=== PATIENT | male | born 1965 | race Caucasian/White ===

== ENCOUNTER → 2016-09-13 | Outpatient (CLI) | payer OTHER ==
[~2016-09-13] MED LIST: ALDACTONE 25MG25 MG PO; ASPIR-LOW81 MG PO; CARDIZEM CD120 MG PO; DIAMOX 250 MG250 MG PO; FERROUS SULFAT325 M2 PO; FOLIC ACID 1 MG1 MG PO; K-DUR TAB 20 M20 MEQ PO; LANTUS100 UNIT/1 SQ; LASIX20 MG PO; LEVEMIR100 UNIT/1 SQ; LISINOPRIL10 MG PO; LOPRESSOR50 MG PO; LORTAB 5-325 M1 EACH PO; METOPROLOL TART50 MG PO; NEURONTIN 300300 MG PO; NORVASC 5 MG TAB5 MG PO; NOVOLOG 10100 UNITS/ SQ; OMEPRAZOLE40 MG PO; OTEZLA30 MG PO; SIMVASTATIN20 MG PO; TREXALL10 MG PO; VICTOZA 3-0.6 MG/0.1 SQ; VITAMIN B-121000 MCG PO; ZAROXOLYN/DIULO5 MG PO; ZESTRIL/PRINIVI10 MG PO
[2016-09-13 10:54] LABS: HEMOGLOBIN 9.8 gm/dl (14.0-17.5); RED BLOOD COUNT 3.45 M/UL (4.20-5.50); WHITE BLOOD COUNT 6.7 K/UL (4.5-11.0)
== END ==
LOC: LAB 10:00
PROVIDERS: Podiatrist Foot & Ankle Surgery
DX: E11.621 Type 2 diabetes mellitus with foot ulcer (principal); L97.509 Non-pressure chronic ulcer of other part of unspecified foot with unspecified severity
CPT/HCPCS: 36415; 85027; 86140

== ENCOUNTER → 2016-09-19 | Outpatient (CLI) | payer OTHER, SELFPAY | LOC: KOH-I 15:13 | DX: R51 Headache (principal); R55 Syncope and collapse; R56.9 Unspecified convulsions | CPT/HCPCS: 73718 ==

== ENCOUNTER 2016-10-10 14:52 | Inpatient (IN) | payer OTHER, SELFPAY ==
[~2016-10-10] VITALS: Ht 180.3 cm; Wt 130.2 kg
[~2016-10-10 14:52] MED LIST changes: -CARDIZEM CD120 MG PO; -DIAMOX 250 MG250 MG PO; -LISINOPRIL10 MG PO; -METOPROLOL TART50 MG PO; -TREXALL10 MG PO; -ZAROXOLYN/DIULO5 MG PO
[2016-10-10] MEDS ORDERED: ZAROXOLYN/DIULO5 MG PO (16:22)
[2016-10-10] MEDS ORDERED: DIAMOX 250 MG250 MG PO (16:22)
[2016-10-10 18:29] LABS: HEMOGLOBIN 8.9 gm/dl (14.0-17.5); RED BLOOD COUNT 3.18 M/UL (4.20-5.50); WHITE BLOOD COUNT 6.6 K/UL (4.5-11.0)
[2016-10-11 06:32] LABS: HEMOGLOBIN 7.7 gm/dl (14.0-17.5); WHITE BLOOD COUNT 5.9 K/UL (4.5-11.0)
[2016-10-11 06:37] LABS: RED BLOOD COUNT 2.8 M/UL (4.20-5.50)
--- NOTE | 2016-10-11 22:25 | NUR ---
CONTACTED DR. VALENCIA ABOUT A BG OF 443. HE STATED TO COVER THE PATIENT WITH THE HIGHEST DOSE ON THE SLIDING SCALE. THIS PATIENT IS ON A MED DOSE SLIDING SCALE SO HE RECIEVED 10 UNITS OF NOVOLOG PER HIS ORDER.
[2016-10-12 05:22] LABS: HEMOGLOBIN 7.7 gm/dl (14.0-17.5); RED BLOOD COUNT 2.78 M/UL (4.20-5.50); WHITE BLOOD COUNT 6.6 K/UL (4.5-11.0)
[2016-10-13 04:44] LABS: RED BLOOD COUNT 2.82 M/UL (4.20-5.50)
[2016-10-13 04:45] LABS: WHITE BLOOD COUNT 9.3 K/UL (4.5-11.0)
[2016-10-13 04:47] LABS: HEMOGLOBIN 7.8 gm/dl (14.0-17.5)
[2016-10-13] MEDS ORDERED: TREXALL10 MG PO (23:19)
[2016-10-14 05:21] LABS: HEMOGLOBIN 7.4 gm/dl (14.0-17.5); RED BLOOD COUNT 2.68 M/UL (4.20-5.50)
[2016-10-14 05:23] LABS: WHITE BLOOD COUNT 6.6 K/UL (4.5-11.0)
[2016-10-15 05:57] LABS: BUN/CREATININE RATIO 38 (0-10)
[2016-10-16 05:40] LABS: RED BLOOD COUNT 2.47 M/UL (4.20-5.50)
[2016-10-16 05:42] LABS: WHITE BLOOD COUNT 4.7 K/UL (4.5-11.0)
[2016-10-16 05:52] LABS: BUN/CREATININE RATIO 36 (0-10)
--- NOTE | 2016-10-16 05:53 | NUR ---
0545 lab called to report a critical Hgb of 7.0 , DR ORDONEZ WAS NOTIFIED AND NEW ORDERS ARE NOTED.
[2016-10-17 04:48] LABS: HEMOGLOBIN 7.2 gm/dl (14.0-17.5); RED BLOOD COUNT 2.62 M/UL (4.20-5.50); WHITE BLOOD COUNT 4.8 K/UL (4.5-11.0)
[2016-10-17 05:06] LABS: BUN/CREATININE RATIO 28 (0-10)
[2016-10-18 06:58] LABS: BUN/CREATININE RATIO 22 (0-10)
[2016-10-18 12:30] LABS: RED BLOOD COUNT 2.84 M/UL (4.20-5.50); WHITE BLOOD COUNT 4.2 K/UL (4.5-11.0)
[2016-10-18] MEDS ORDERED: CARDIZEM CD120 MG PO (13:09)
[2016-10-18] MEDS ORDERED: LISINOPRIL10 MG PO (13:11)
[2016-10-18] MEDS ORDERED: METOPROLOL TART50 MG PO (13:11)
== END 2016-10-18 19:00 | disposition home or self-care (01) | DRG 264 ==
LOC: M/S 15:17
PROVIDERS: Internal Medicine; Podiatrist Foot & Ankle Surgery; ADMIT Emergency Medicine
PROC: 0JBR0ZZ Excision of Left Foot Subcutaneous Tissue and Fascia, Open Approach (ICD-10-PCS; principal; 2016-10-12 07:45)
PROC: 0QBM0ZZ Excision of Left Tarsal, Open Approach (ICD-10-PCS; principal; 2016-10-12 07:45)
PROC: B41F1ZZ Fluoroscopy of Right Lower Extremity Arteries using Low Osmolar Contrast (ICD-10-PCS; 2016-10-14)
PROC: B41G1ZZ Fluoroscopy of Left Lower Extremity Arteries using Low Osmolar Contrast (ICD-10-PCS; 2016-10-14)
PROC: 30233N1 Transfusion of Nonautologous Red Blood Cells into Peripheral Vein, Percutaneous Approach (ICD-10-PCS; 2016-10-17)
PROC: B543ZZA Ultrasonography of Right Jugular Veins, Guidance (ICD-10-PCS; 2016-10-18)
PROC: 05HM33Z Insertion of Infusion Device into Right Internal Jugular Vein, Percutaneous Approach (ICD-10-PCS; 2016-10-18)
PROC: 0JDR0ZZ Extraction of Left Foot Subcutaneous Tissue and Fascia, Open Approach (ICD-10-PCS; 2016-10-18)
DX: E11.51 Type 2 diabetes mellitus with diabetic peripheral angiopathy without gangrene (principal); M86.472 Chronic osteomyelitis with draining sinus, left ankle and foot; I50.32 Chronic diastolic (congestive) heart failure; L03.116 Cellulitis of left lower limb; I13.0 Hypertensive heart and chronic kidney disease with heart failure and stage 1 through stage 4 chronic kidney disease, or unspecified chronic kidney disease; N17.9 Acute kidney failure, unspecified; I48.91 Unspecified atrial fibrillation; I95.2 Hypotension due to drugs; T46.1X5A Adverse effect of calcium-channel blockers, initial encounter; T46.4X5A Adverse effect of angiotensin-converting-enzyme inhibitors, initial encounter; R11.10 Vomiting, unspecified; E86.1 Hypovolemia; E87.6 Hypokalemia; E86.0 Dehydration; D50.9 Iron deficiency anemia, unspecified; B96.89 Other specified bacterial agents as the cause of diseases classified elsewhere; E11.22 Type 2 diabetes mellitus with diabetic chronic kidney disease; N18.2 Chronic kidney disease, stage 2 (mild); E11.65 Type 2 diabetes mellitus with hyperglycemia; E66.01 Morbid (severe) obesity due to excess calories; M06.9 Rheumatoid arthritis, unspecified; E11.42 Type 2 diabetes mellitus with diabetic polyneuropathy; L40.9 Psoriasis, unspecified; E78.5 Hyperlipidemia, unspecified; Y92.230 Patient room in hospital as the place of occurrence of the external cause; Z83.3 Family history of diabetes mellitus; Z80.8 Family history of malignant neoplasm of other organs or systems; Z86.010 Personal history of colon polyps; K25.7 Chronic gastric ulcer without hemorrhage or perforation; Z79.4 Long term (current) use of insulin; Z79.84 Long term (current) use of oral hypoglycemic drugs; Z79.52 Long term (current) use of systemic steroids; Z79.899 Other long term (current) drug therapy
CPT/HCPCS: ECHO; 36245; 36415; 36430; 71010; 75630; 77001; 80048; 80053; 80061; 80202; 82550; 82553; 82607; 82728; 82947; 82962; 83036; 83540; 83550; 83735; 84132; 84439; 84443; 84466; 84484; 85025; 85027; 85045; 86850; 86900; 86901; 86920; 87040; 87070; 87077; 87186; 87205; 93005; 93306; C1713; C1751; C1769; C1788; J0696; J1100; J1580; J1644; J1650; J1756; J1815; J1940; J2001; J2250; J2405; J2550; J2765; J2795; J3010; J3370; J7030; J7050; J7070; J7120; J8610; P9016; Q9965